=== PATIENT | male | born 1980 | race American Indian/Alaskan Native ===

== ENCOUNTER 2017-09-17 08:17 | Emergency (ER) | payer BC ==
[2017-09-17 09:40] VITALS: BP 118/72
--- NOTE | 2017-09-17 15:32 | Emergency Department Report ---
HPI - General Chief Complaint: Allergic Reaction Time Seen by Provider: 09/17/17 14:14 - HPI HPI: Patient reported allergic reaction a week ago and her poor rash to his facial area around his nose with fine bumps. He said this got worse last night. He said his skin is irritated around his facial area with reddish pustules. Denies any shortness of breath. Took Benadryl last week. He said he had pinkeye last week and was prescribed erythromycin. Denies any nausea or vomiting, denies any fever, chills cough, nasal congestion or sore throat. Denies any pain. Ports H and around nose. ED Past Medical Hx - Past Medical History Previous Medical History?: Yes Additional medical history: right eye pink eye - Surgical History Past Surgical History?: No - Family History Family history: no significant - Social History Smoking Status: Current Every Day Smoker Substance Use Type: Alcohol, Prescribed - Medications Home Medications: Home Medications Medication Instructions Recorded Confirmed Last Taken Type hydrOXYzine HCL [Atarax] 25 mg PO Q6HR PRN #12 tablet 09/17/17 Unknown Rx predniSONE [Deltasone] 50 mg PO QDAY 5 Days #5 tab 09/17/17 Unknown Rx ED Review of Systems ROS: Stated complaint: ALLERGIC REACTION Other details as noted in HPI Comment: All other systems reviewed and negative Constitutional: no symptoms reported ENT: denies: ear pain, throat pain, congestion Respiratory: denies: cough, orthopnea, shortness of breath, SOB with exertion, SOB at rest, stridor, wheezing Cardiovascular: denies: chest pain, palpitations, dyspnea on exertion, edema, syncope Gastrointestinal: denies: abdominal pain, nausea, vomiting Genitourinary: denies: dysuria, hematuria Musculoskeletal: denies: back pain, joint swelling, arthralgia Skin: rash, pruritus Neurological: denies: headache Physical Exam - Physical Exam Vital Signs: Vital Signs 09/17/17 09:35 Temperature 98.2 F Pulse Rate 66 Respiratory 20 Rate Blood Pressure 118/72 O2 Sat by Pulse 100 Oximetry General: This is a 37-year-old male well-nourished well-developed in no acute distress. Physical Exam: Head: Normocephalic, atraumatic Mouth: Moist, no pharyngeal exudate or erythema, uvula is midline, oral airways patent. Palate is normal and no peritonsillar abscess Lungs: Clear to auscultate bilaterally, no rhonchi wheezes or rales. No use of accessory muscles. CV: S1 S2. Regular rate rhythm. Negative murmur Extremity: No clubbing, cyanosis or edema. +2 pulses to all extremities and no neurovascular compromise Skin: Noted dry scaly area around mouth and nasal area. No injury did or cellulitic area noted. Patchy, erythema jars scaly areas which are nontender to palpate. No drainage noted. Psych: Normal mood and behavior ED Course Vital Signs 09/17/17 09:35 Temperature 98.2 F Pulse Rate 66 Respiratory 20 Rate Blood Pressure 118/72 O2 Sat by Pulse 100 Oximetry - Reevaluation(s) Reevaluation #1: 09/17/17 16:45 given Deltasone 60 mg by mouth in emergency room for allergic dermatitis ED Medical Decision Making - Medical Decision Making ED course: She care complaining of rash to facial area and found to have allergic dermatitis with erythema patchy dry scaly area to facial area located around nose and mouth .I discussed diagnosis and treatment plan the patient. Patient discharged home with prescription for Deltasone and Atarax and to follow -up with machine sprayer in 2-3 days. Critical care attestation.: If time is entered above; I have spent that time in minutes in the direct care of this critically ill patient, excluding procedure time. ED Disposition Clinical Impression: Allergic dermatitis Disposition: [id number] TO HOME OR SELFCARE Is pt being admited?: No Does the pt Need Aspirin: No Condition: Stable Instructions: Acute Rash (ED) Additional Instructions: Keep affected area clean and dry Follow up at [facility] for primary care and see referral to machine sprayer Take medication as prescribed Prescriptions: hydrOXYzine HCL [Atarax] 25 mg PO Q6HR PRN #12 tablet PRN Reason: Itching predniSONE [Deltasone] 50 mg PO QDAY 5 Days #5 tab Referrals: RAMESH BHAT MD [Primary Care Provider] - 3-5 Days Forms: Work/School Release Form(ED)
[2017-09-17] MEDS ORDERED: DELTASONE PO ONE (15:33)
== END 2017-09-17 17:17 | disposition home or self-care (01) ==
LOC: ED 08:17
DX: L23.9 Allergic contact dermatitis, unspecified cause (principal); F17.200 Nicotine dependence, unspecified, uncomplicated
CPT/HCPCS: 99282; J7512